=== PATIENT | male | born 1975 | race Caucasian/White ===

== ENCOUNTER → 2022-02-06 | Outpatient (CLI) ==
[~2022-02-06] MED LIST: AGM875T PO; NAPR-243 PO; TRM50T PO
[2022-02-06 11:52] LABS: ABSOLUTE RETIC # 37 10e9/uL (24-90); BASOPHILS # (AUTO) 0.1 10^3/uL (0.0-0.1); BASOPHILS % (AUTO) 1 % (0-10); EOSINOPHILS # (AUTO) 0.1 10^3/uL (0.0-0.3); EOSINOPHILS % (AUTO) 2 % (0-10); HEMATOCRIT 43 % (40-54); HEMOGLOBIN 14.7 g/dL (13.3-17.7); LYMPHOCYTES # (AUTO) 1.7 10^3/uL (1.0-4.0); LYMPHOCYTES % (AUTO) 44 % (12-44); MEAN CORPUSCULAR HEMOGLOBIN 33 pg (25-34); MEAN CORPUSCULAR HGB CONC 34 g/dL (32-36); MEAN CORPUSCULAR VOLUME 98 fL (80-99); MEAN PLATELET VOLUME 10.3 fL (9.0-12.2); MONOCYTES # (AUTO) 0.5 10^3/uL (0.0-1.0); MONOCYTES % (AUTO) 12 % (0-12); NEUTROPHILS # (AUTO) 1.6 10^3/uL (1.8-7.8); NEUTROPHILS % (AUTO) 41 % (42-75); PLATELET COUNT 182 10^3/uL (130-400); RETICULOCYTE % 0.84 % (0.50-2.40); WHITE BLOOD COUNT 3.9 10^3/uL (4.3-11.0)
[2022-02-06 12:17] LABS: LYMPHOCYTES % (MANUAL) 37 %; NEUTROPHILS % (MANUAL) 43 %
[2022-02-06 12:18] LABS: EOSINOPHILS % (MANUAL) 4 %; MONOCYTES % (MANUAL) 16 %; PLATELET ESTIMATE ADEQUATE; RBC MORPH NORMAL
== END ==
LOC: LABNPT 11:38
PROVIDERS: ATTEND Family Medicine
DX: D70.9 Neutropenia, unspecified (principal); R53.83 Other fatigue
CPT/HCPCS: 85007; 85027; 85045; 85055

== ENCOUNTER → 2022-06-06 | Outpatient (CLI) | payer OTHER ==
--- NOTE | 2022-06-06 12:19 | Diagnostic Imaging Report ---
Indication: Left thigh mass Ultrasound of the left posterior thigh shows an isoechoic elliptical shaped mass in the subcutaneous soft tissues abutting the muscle fascia. This measures 4.9 x 0.6 x 2.4 cm. It is nonvascular. IMPRESSION: Homogeneous isoechoic lesion in the subcutaneous soft tissues of the left posterior thigh. This may represent a hematoma. Given patient's clinical history sarcoma cannot be excluded. Dictated by: Dictated on workstation # [id number]
== END ==
LOC: RAD 10:30
PROVIDERS: ATTEND Nurse Practitioner Family
DX: R22.42 Localized swelling, mass and lump, left lower limb (principal)
CPT/HCPCS: 76881

== ENCOUNTER → 2022-06-12 | Outpatient (CLI) | payer OTHER ==
[~2022-06-12] MED LIST changes: +GADOTERATE 0.5 MMOL/ML (CLARISCAN) 15 ML VIAL IV ONE
--- NOTE | 2022-06-12 12:21 | Diagnostic Imaging Report ---
PROCEDURE: MRI left lower extremity with and without contrast. TECHNIQUE: Multiplanar, multisequence pre and post contrast-enhanced MRI of the left lower extremity was accomplished. INDICATION: Left lateral thigh mass. 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 COMPARISON: MRI of the left thigh from 05/19/2018. FINDINGS: Skin markers placed on the lateral aspect of the mid thigh to demarcate the site of concern. At the level of marker, there is an elliptical shaped fluid collection located along the superficial fascia of the posterior compartment. This collection measures 2.0 x 1.1 x 3.0 cm. There are layering mixed intensity fluid levels, most indicative of a hemorrhage. A thin rim of enhancement is present around the mass. There is no mural nodularity or thick internal septations. The medial aspect of the thigh shows postsurgical changes with mild atrophy in the distal aspect of the vastus medialis. Posttreatment subcutaneous reticulations throughout the medial aspect of the distal thigh are unchanged. No abnormal area of enhancement has developed within the medial aspect of the thigh. No worrisome focal osseous lesion. IMPRESSION: 1. The palpable abnormality along the lateral aspect of the distal thigh is most compatible with a small intramuscular hematoma. This position would favor this to be posttraumatic in nature. However, if there is no trauma in this region, then recommend continued followup with physical examination to ensure resolution. Additionally, if this does not resolve in the next 2 months, repeat imaging may be warranted to reassess for underlying hemorrhagic neoplasm. Dictated by: Dictated on workstation # [id number]
== END ==
LOC: RAD 07:23
PROVIDERS: ATTEND Nurse Practitioner Family
DX: R22.42 Localized swelling, mass and lump, left lower limb (principal)
CPT/HCPCS: 73720

== ENCOUNTER 2023-04-16 05:33 | Outpatient (CLI) | payer OTHER ==
[~2023-04-16] VITALS: Ht 177.8 cm; Wt 77.0 kg
[~2023-04-16 05:33] MED LIST changes: -GADOTERATE 0.5 MMOL/ML (CLARISCAN) 15 ML VIAL IV ONE
[2023-04-16] MEDS ORDERED: VALA500T7 PO (12:36)
[2023-04-16] MEDS ORDERED: SERT-413 PO (12:36)
== END 2023-04-16 13:17 | disposition home or self-care (01) ==
LOC: PREOP 05:33
PROVIDERS: ATTEND Surgery
DX: Z01.818 Encounter for other preprocedural examination (principal)

== ENCOUNTER 2023-04-25 12:24 | Day surgery (SDC) | payer OTHER ==
[~2023-04-25] VITALS: Ht 177.8 cm; Wt 77.0 kg
[~2023-04-25 12:24] MED LIST changes: +SERT-413 PO; +VALA500T7 PO
[2023-04-25] MEDS ORDERED: LACTATED RINGERS 1,000 ML 1,000 ML IV STA (12:29)
[2023-04-25 12:45] VITALS: BP 127/76
--- NOTE | 2023-04-25 14:07 | Progress Note-Pre Operative ---
Pre-Operative Progress Note Date H&P Reviewed: Apr 25, 2023 Time H&P Reviewed: 14:07 History & Physical: H&P Reviewed, Patient Examed, No changes noted Pre-Operative Diagnosis: screening colonoscopy SASKIA TERRY DO Apr 25, 2023 14:07
[2023-04-25] MEDS ORDERED: MIDAZOLAM INJ 2 MG/2 ML VIAL ONE (14:44)
--- NOTE | 2023-04-25 15:17 | Discharge Inst-Simple/Standard ---
Discharge Inst-Standard Patient Instructions/Follow Up Plan of Care/Instructions/FU: 2 weeks julio Activity as Tolerated: Yes Discharge Diet: Regular Diet SASKIA TERRY DO Apr 25, 2023 15:17
--- NOTE | 2023-04-25 15:18 | Progress Note-Post Operative ---
Post-Operative Progess Note Surgeon (s)/Emergency Management Program Specialist (s) Surgeon SASKIA TERRY DO Emergency Management Program Specialist: na Pre-Operative Diagnosis screening colonoscopy Post-Operative Diagnosis rectal polyp Procedure & Operative Findings Date of Procedure 04/25/23 Procedure Performed/Findings colonoscopy c cold biopsy polypectomy x 1 Anesthesia Type per network field engineer Estimated Blood Loss Estimated blood loss (mL): none Specimens/Packing Specimens Removed rectal polyp SASKIA TERRY DO Apr 25, 2023 15:18
[2023-04-25 15:20] VITALS: BP 90/51
[2023-04-25 15:25] VITALS: BP 88/50
[2023-04-25 15:30] VITALS: BP 101/57
--- NOTE | 2023-04-25 15:44 | Anesthesia-General Post-Op ---
MAC Patient Condition Mental Status/LOC: Same as Preop Cardiovascular: Satisfactory Nausea/Vomiting: Absent Respiratory: Satisfactory Pain: Controlled Complications: Absent Post Op Complications Complications None Follow Up Care/Instructions Patient Instructions None needed. Anesthesiology Discharge Order Discharge Order Patient is doing well, no complaints, stable vital signs, no apparent adverse anesthesia problems. No complications reported per nursing. LUIZ LOWE CRNA Apr 25, 2023 15:44
[2023-04-25 16:00] VITALS: BP 101/57
--- NOTE | 2023-04-26 01:17 | OPERATIVE REPORT ---
DATE OF SERVICE: 04/25/2023 PREOPERATIVE DIAGNOSIS: Screening colonoscopy. POSTOPERATIVE DIAGNOSIS: Rectal polyps. PROCEDURE: Colonoscopy with cold biopsy polypectomy x1. SURGEON: Saskia Lee DO ANESTHESIA: Per BUTTERMILK DRIER OPERATOR. ESTIMATED BLOOD LOSS: None. COMPLICATIONS: None. INDICATIONS: The patient is a 47-year-old male for screening colonoscopy. He understands risks and benefits of procedure and wished to proceed. Consent was signed in chart. DESCRIPTION OF PROCEDURE: The patient was taken to endoscopy suite, placed in left lateral recumbent position. Timeout was performed. Digital rectal exam was performed. No palpable polyps, masses or ulcerations. Scope was inserted in the rectum, advanced all the way to the cecum with minimal difficulty. Scope was then slowly retracted back. No polyps, masses or ulcerations within the cecum, ascending, transverse, descending and sigmoid colon. In the rectum, a small rectal polyp was present, which cold biopsy polypectomy was performed. Scope was retroflexed noting no other pathology. Scope was returned to its normal position, slowly withdrawn until completely removed. The patient tolerated the procedure well without complications, taken to recovery room in stable condition. RECOMMENDATIONS: The patient will need repeat colonoscopy in 5 years. Any issues before that, be seen at that time. The patient will follow up on pathology in 2 weeks. Job ID: [id number] DocumentID: [id number] Dictated Date: 04/25/2023 15:49:42 Jewelry Sales Associate Date: 04/26/2023 01:15:00 Dictated By: SASKIA LEE DO
== END 2023-04-25 16:00 | disposition home or self-care (01) ==
LOC: ENDO 12:24
PROVIDERS: ATTEND Surgery
DX: Z12.11 Encounter for screening for malignant neoplasm of colon (principal); K62.1 Rectal polyp; J45.909 Unspecified asthma, uncomplicated; Z79.899 Other long term (current) drug therapy